=== PATIENT | male | born 2005 | race Caucasian/White ===

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

== ENCOUNTER 2024-05-01 18:19 | Emergency (ER) | payer MEDICAID ==
[2024-05-01 18:27] VITALS: BP 132/72
[2024-05-01 18:50] VITALS: PULSE 101
== END 2024-05-01 18:50 | disposition home or self-care (01) ==
LOC: MW.ED 18:19
DX: K04.7 Periapical abscess without sinus (principal); F17.210 Nicotine dependence, cigarettes, uncomplicated; Z88.0 Allergy status to penicillin; Z88.1 Allergy status to other antibiotic agents; Z79.899 Other long term (current) drug therapy; Z75.8 Other problems related to medical facilities and other health care
CPT/HCPCS: 99283

== ENCOUNTER 2024-09-26 17:52 | Emergency (ER) | payer MEDICAID ==
[2024-09-26] MEDS: Benzocaine 20% Topical Spray UD MUCMEM ONE (20:14)
[2024-09-26] MEDS: Ketorolac 30 MG/ML SDV IM ONE (20:14)
[2024-09-26] MEDS: Lidocaine 2% Viscous Solution 15 ML UD PO ONE (20:14)
[2024-09-26 20:45] VITALS: BP 128/74; PULSE 85
== END 2024-09-26 20:46 | disposition home or self-care (01) ==
LOC: MW.ED 17:52
DX: K04.7 Periapical abscess without sinus (principal); K02.9 Dental caries, unspecified; K03.81 Cracked tooth; K00.7 Teething syndrome; F17.200 Nicotine dependence, unspecified, uncomplicated; Z88.0 Allergy status to penicillin; Z88.8 Allergy status to other drugs, medicaments and biological substances; Z79.899 Other long term (current) drug therapy; Z75.3 Unavailability and inaccessibility of health-care facilities
CPT/HCPCS: 96372; 99282; A9270; J1885

== ENCOUNTER 2024-10-21 04:55 | Emergency (ER) | payer MEDICAID ==
[2024-10-21 05:04] VITALS: BP 139/86; PULSE 82
== END 2024-10-21 05:15 | disposition home or self-care (01) ==
LOC: MW.ED 04:55
DX: K02.9 Dental caries, unspecified (principal); K01.1 Impacted teeth; Z88.0 Allergy status to penicillin; Z88.8 Allergy status to other drugs, medicaments and biological substances
CPT/HCPCS: 64400; 99282; J0665

== ENCOUNTER 2025-02-22 15:34 | Emergency (ER) | payer BC, MEDICAID ==
[2025-02-22] MEDS ORDERED: Sodium Chloride 0.9% 2.5 ML Syringe FLUSH PRN (15:50)
[2025-02-22] MEDS ORDERED: Sodium Chloride 0.9% 10 ML Syringe FLUSH PRN (15:50)
[2025-02-22] MEDS: Ondansetron 4 MG/2 ML SDV IVPUSH ONE (16:09)
[2025-02-22 16:11] LABS: BASOPHILS ABSOLUTE AUTO 0.04 K/uL (0.00-0.20); BASOPHILS PERCENT AUTO 0.3 % (0.0-1.0); EOSINOPHILS ABSOLUTE AUTO 0.12 K/uL (0.00-0.45); EOSINOPHILS PERCENT AUTO 0.9 % (0.0-6.0); IMMATURE GRAN ABSOLUTE AUTO 0.06 K/uL (0.00-0.05); IMMATURE GRAN PERCENT AUTO 0.5 % (0.0-0.4); LYMPHOCYTES ABSOLUTE AUTO 2.45 K/uL (1.00-4.80); LYMPHOCYTES PERCENT AUTO 19.2 % (24.0-44.0); MEAN PLATELET VOLUME 8.5 fL (9.4-12.4); MONOCYTES ABSOLUTE AUTO 0.48 K/uL (0.00-0.80); MONOCYTES PERCENT AUTO 3.8 % (0.0-8.0); NEUTROPHILS ABSOLUTE AUTO 9.63 K/uL (1.80-7.70); NEUTROPHILS PERCENT AUTO 75.3 % (41.0-71.0); NRBC ABSOLUTE 0.00 K/uL (0.00-0.02); NRBC PERCENT 0.0 /100WBC (0.0-0.2); PLATELET COUNT,PLT 337 K/uL (150-400); RED BLOOD CELL COUNT 5.98 M/uL (4.52-5.90); WHITE BLOOD CELL COUNT,WBC 12.78 K/uL (3.9-11.3)
[2025-02-22] MEDS: Ketorolac 30 MG/ML SDV IVPUSH ONE (16:43)
[2025-02-22 16:45] VITALS: BP 144/80; PULSE 98
[2025-02-22 16:45] LABS: A/G RATIO 1.0 (0.9-1.6); ALANINE AMINOTRANSFERASE,ALT 77.0 IU/L (14-63); ASPARTATE AMNIOTRANSFERASE,AST 35.0 IU/L (15-37); BILIRUBIN TOTAL 0.2 mg/dL (0.2-1.0); BLOOD UREA NITROGEN,BUN 14.0 mg/dL (7.0-18.0); CARBON DIOXIDE,CO2 25.8 mmol/L (21.0-32.0); CHLORIDE,CL 102.0 mmol/L (98-107); CREATININE 0.9 mg/dL (0.8-1.3); EST CRCL DRUG DOSING (CG) 126.67 mL/min; GLUCOSE RANDOM 114.0 mg/dL (74-106); POTASSIUM,K 4.2 mmol/L (3.5-5.1); PROTEIN TOTAL,TP 8.2 g/dL (6.4-8.2); SODIUM,NA 136.0 mmol/L (136-148)
[2025-02-22 16:46] LABS: ESTIMATED GFR 125.0 mL/min (>60)
== END 2025-02-22 17:45 | disposition home or self-care (01) ==
LOC: MW.ED 15:34
DX: K52.9 Noninfective gastroenteritis and colitis, unspecified (principal); J06.9 Acute upper respiratory infection, unspecified; J02.9 Acute pharyngitis, unspecified; Z79.899 Other long term (current) drug therapy; Z88.0 Allergy status to penicillin; Z88.1 Allergy status to other antibiotic agents
CPT/HCPCS: 36415; 71045; 80053; 83690; 83735; 85025; 86308; 87428; 87651; 96361; 96374; 96375; 99284; J1885; J2405; J7030; J8540; 99283